=== PATIENT | female | born 1980 | race Caucasian/White ===

== ENCOUNTER 2021-12-07 15:23 | Outpatient (CLI) | payer OTHER | END 2021-12-07 15:24 | disposition home or self-care (01) | LOC: CSHMAMMO 15:23 | PROVIDERS: ATTEND Family Medicine | DX: Z12.31 Encounter for screening mammogram for malignant neoplasm of breast (principal) | CPT/HCPCS: 77063; 77067 ==

== ENCOUNTER 2022-09-07 15:22 | Emergency (ER) | payer OTHER | END 2022-09-07 17:32 | disposition home or self-care (01) | LOC: CSHERS 15:22 | DX: R05.9 Cough, unspecified (principal); I10 Essential (primary) hypertension; E78.00 Pure hypercholesterolemia, unspecified | CPT/HCPCS: 71045 ==

== ENCOUNTER 2023-10-10 13:52 | Outpatient (CLI) | payer OTHER | END 2023-10-10 13:53 | disposition home or self-care (01) | LOC: CSHULT 13:52 | PROVIDERS: ATTEND Family Medicine | DX: I77.3 Arterial fibromuscular dysplasia (principal) | CPT/HCPCS: 93880 ==

== ENCOUNTER 2024-01-04 14:36 | Outpatient (CLI) | payer OTHER | END 2024-01-04 14:37 | disposition home or self-care (01) | LOC: CSHMAMMO 14:36 | PROVIDERS: ATTEND Family Medicine | DX: Z12.31 Encounter for screening mammogram for malignant neoplasm of breast (principal) | CPT/HCPCS: 77063; 77067 ==